=== PATIENT | female | born 1960 | race Caucasian/White ===

== ENCOUNTER → 2024-04-21 17:00 | Outpatient (REF) | payer BC, SELFPAY | LOC: WDC 17:00 | PROVIDERS: ATTENDING PHYSICIAN Obstetrics & Gynecology Gynecology; FAMILY PHYSICIAN Internal Medicine | DX: Z12.31 Encounter for screening mammogram for malignant neoplasm of breast (principal); Z01.419 Encounter for gynecological examination (general) (routine) without abnormal findings | CPT/HCPCS: 77063; 77067 ==

== ENCOUNTER 2025-04-27 15:20 | Emergency (ER) | payer BC, SELFPAY ==
[2025-04-27 17:45] VITALS: BP 161/92
[2025-04-27 17:47] VITALS: BP 161/92
[2025-04-27 17:50] VITALS: BMI 32.4
[2025-04-27] MEDS: TORADOL 15 MG IV (18:19)
[2025-04-27] MEDS: TYLENOL 650 MG PO (18:19)
[2025-04-27 18:23] LABS: ALT (SGPT) 18 U/L (0-35); AST (SGOT) 18 U/L (14-36); Albumin 4.5 g/dl (3.5-5.0); Alkaline Phosphatase 59 U/L (38-126); Blood Urea Nitrogen 8 mg/dl (7-17); Calcium 9.5 mg/dl (8.4-10.2); Carbon Dioxide 25 mmol/L (22-30); Chloride 106 mmol/L (98-107); Estimated Creatinine Clearance 83 ml/min; Glucose 97 mg/dl (70-99); Potassium 3.8 mmol/L (3.5-5.1); Sodium 137 mmol/L (135-145); Total Bilirubin 1.3 mg/dl (0.2-1.3); Total Protein 7.1 g/dl (6.3-8.2); eGFR > 60.00
--- NOTE | 2025-04-27 18:23 | ED.GENMED ---
History of Present Illness
General
Chief Complaint: Abdominal Pain
Source: patient
Time Seen by Provider: 04/27/25 18:14
History of Present Illness
History of Present Illness:
64-year-old female with past medical history of hypertension and previous diverticulitis presenting to the ER for evaluation of left lower quadrant pain that began yesterday, acutely worse today accompanied with some nausea but no vomiting and a
low-grade fever, found to have a fever of 100.7 here. Patient took some Tylenol this morning around 10 AM for her fever and pain but states minimal relief of the pain. She states that this does feel like her diverticulitis from last time but this
feels '10 times worse'. Patient describes the pain to be a constant throbbing sensation, nonradiating and mostly pronounced within the left lower quadrant and suprapubic area. Social history noncontributory. Surgical history is noted for previous
and laparoscopic cholecystectomy.
Past History
Past History
ED Past Medical History: GERD and HTN
ED Past Surgical History: Cholecystectomy and
Social History
Tobacco: Non-smoker
Alcohol: Occasional
Drug: None
Personal:
Living: with family
Employment: Employed
Review of Systems
Review of Systems
All Other Systems: ROS reviewed and negative except as documented in HPI and ROS
Phy Exam
Physical Exam
Physical Exam:
GENERAL: Alert , in no apparent distress, Appears uncomfortable
EYE: clear conjunctiva b/l
HEAD: NCAT
ENT: o/p clr, mmm.
CARDIAC: Regular rate and rhythm .
LUNGS: Clear breath sounds bilaterally, no acute respiratory distress, no wheezes/rales/rhonchi
ABDOMEN: Soft, moderate left lower quadrant tenderness and suprapubic with grimacing on palpation, no r/g
NEUROLOGICAL: Alert and oriented
SKIN: Warm and dry, skin intact.
MUSCULOSKELETAL: No edema, well perfused.
PSYCH: Normal and appropriate interaction.
Scores
Heart Failure Risk
Heart Failure Risk Score: Not Applicable
Heart Score for Chest Pain Patients
STEMI patient?: Not applicable
Withdrawal Assessment of Alcohol
Withdrawal Assessment Completed?: Not applicable
Course
Orders/Labs/Results
Orders:
Orders
04/27/25 18:01
Complete Blood Count/With Diff Urgent
Comprehensive Metabolic Panel Urgent
Lactate Level [Lactic Acid] Urgent
04/27/25 18:03
Acetaminophen [Tylenol] 650 mg PO NOW STA
Ketorolac [Toradol] 15 mg IV NOW STA
04/27/25 18:04
CT Abd/pelvis W Iv Cont Urgent
Comment:
Reason For Exam: abdominal pain, hx diverticulitis
04/27/25 18:20
Ondansetron Injectable [Zofran] 4 mg IV NOW STA
04/27/25 18:23
Blood Culture Q30M
BRISEIDA Source: Blood/Venous
Specimen Description:
04/27/25 19:00
Blood Culture Q30M
BRISEIDA Source: Blood/Venous
Specimen Description:
04/27/25 21:00
Amoxicillin 875 mg/Clav 125 mg [Augmentin 875 mg/125 mg] 1 tablet PO NOW STA
Abnormal Lab Results
04/27/25
18:01
Absolute Neuts (auto) 8.5 H 10^3/uL
(1.4-6.5)
Absolute Monos (auto) 0.7 H 10^3/uL
(0.1-0.6)
Neutrophils % 78.9 H %
(42.2-75.2)
Lymphocytes % 12.7 L %
(20.5-51.1)
04/27/25 18:01
04/27/25 18:01
Vital Signs
Initial and Last Documented VS:
Initial Vital Signs
Temp Pulse Resp BP Pulse Ox
100.7 F H 102 22 161/92 94
04/27/25 17:45 04/27/25 17:45 04/27/25 17:45 04/27/25 17:45 04/27/25 17:45
Last Documented Vital Signs
Temp Pulse Resp BP Pulse Ox
100.7 F H 99 15 161/92 97
04/27/25 17:45 04/27/25 20:00 04/27/25 20:00 04/27/25 17:47 04/27/25 20:00
MDM/Problems Addressed
Differential Diagnosis Includes:
Diverticulitis, urinary tract infection, appendicitis, colitis, renal/ureteral colic
MDM/Problems Addressed:
64-year-old female presented the ER for evaluation of left lower quadrant abdominal pain that started yesterday, found to have a fever of 100.7 here. Tenderness is significant within the left lower quadrant and suprapubic region. She states that
this does feel like her diverticulitis but much worse presently. Will obtain labs including blood cultures. Pain control with Toradol, Zofran and fluids. CT of the abdomen and pelvis ordered. Disposition pending
*Radiology
Radiology exam reviewed: radiology read reviewed
*Pulse Oximetry
Patient hypoxic: no
*Critical Care Note
Total Time (30-74mins, 75-104mins- exclusive of procedures): Not Applicable
Data Reviewed
Review of Other/Old Records Reveals: Records and Radiology Studies
Patient Management
Social determinants of health affecting care: Living situation and Strong social support
Escalation/DeEscalation of care consider admission/obs:
CT shows acute uncomplicated sigmoid diverticulitis. Given the patient did present with a fever I did offer her hospitalization for IV antibiotics however she does note her symptoms seem to be improved following treatment here and she ultimately
would prefer to be discharged home and trial an oral antibiotic. Will prescribe Augmentin. Give first dose here. Patient aware of return precautions to the ER and is otherwise stable for discharge home.
ED Attending Note
-
Portions of this chart may have been created with voice recognition software.� Occasional wrong word or��sound alike� substitutions may have occurred due to the inherent limitations of voice recognition software.
Discharge Plan
Departure
Patient Disposition: Home (Routine Discharge)
Date of Disposition: 04/27/25
Time of Disposition: 20:59
Patient with high blood pressure during this ER visit?: Yes
Discharge Problem:
Diverticulitis of sigmoid colon
Instructions: Diverticulitis (DC)
Prescriptions:
New
amoxicillin-pot clavulanate 875-125 mg tablet
1 tab PO BID Qty: 19 0RF
No Action
lorazepam 0.5 MG tablet
0.5 mg PO PRN PRN (Reason: anxiety)
hydrochlorothiazide 25 MG tablet
12.5 mg PO DAILY
omeprazole 20 MG capsule,delayed release(DR/EC)
20 mg PO DAILY
prednisone 10 MG tablet
10 mg PO DAILY 12 Days 0RF
metronidazole 500 MG tablet
500 mg PO TID Qty: 21 0RF
ciprofloxacin HCl 500 MG tablet
500 mg PO BID Qty: 14 0RF
Referrals:
NONE,* [Family Provider, Internal Medicine]
Interventions
Interventions:
*Risk Screen - Suicide Last Done: 04/27/25 18:36
*General Assessment Last Done: 04/27/25 18:36
*Neglect/Abuse Screening Last Done: 04/27/25 18:36
*ED- Fall Risk Assessment Last Done: 04/27/25 18:36
*ED COVID-19 Vaccine History Last Done: 04/27/25 18:36
[place]-Bxbona-Vpiqgjyulq Assessment Last Done: 04/27/25 18:36
Discharge Date and Time
Print Language: PORTUGUESE
[2025-04-27] MEDS: ZOFRAN 4 MG IV (18:25)
[2025-04-27 18:51] LABS: % Basophils 0.5 % (0-2); % Eosinophils 0.6 % (0-6); % Immature Granulocytes 0.4 % (0-0.5); % Lymphocytes 12.7 % (20.5-51.1); % Monocytes 6.9 % (1.7-9.3); % Neutrophils 78.9 % (42.2-75.2); Absolute Basophils 0.1 10^3/uL (0-0.2); Absolute Eosinophils 0.1 10^3/uL (0-0.7); Absolute Lymphocytes 1.4 10^3/uL (1.2-3.4); Absolute Monocytes 0.7 10^3/uL (0.1-0.6); Absolute Neutrophils 8.5 10^3/uL (1.4-6.5); Hematocrit 39.5 % (37.0-47.0); Hemoglobin 13.9 g/dL (12.0-16.0); Mean Corp Hgb Conc. 35.2 g/dL (33.0-37.0); Mean Corpuscular Hgb 30.8 pg (27.0-31.0); Mean Corpuscular Volume 87.4 fL (81.0-99.0); Mean Platelet Volume 10.3 fL (7.4-10.4); Nucleated Red Blood Cells % 0 %; Platelet Count 229 10^3/uL (130-400); Red Blood Cell Count 4.52 10^6/uL (4.20-5.40); Red Cell Dist. Width 12.2 % (11.5-14.5); White Blood Cell Count 10.8 10^3/uL (4.8-10.8)
--- NOTE | 2025-04-27 19:00 | DOWNTIME ---
There was a [employer] Downtime on 04/27/2025 from 1230 to 04/27/2025 at 1550. Downtime documentation of patient's care, including medication administrations, has been reconciled in the electronic record per guidelines. Refer to the
patient's paper chart under the miscellaneous tab to see printed paper medication records and downtime forms.
[2025-04-27] MEDS: AUGMENTIN 875 MG/125 MG 1 TABLET PO (21:15)
== END 2025-04-27 21:37 | disposition home or self-care (01) ==
LOC: EMR 15:20
PROVIDERS: EMERGENCY PHYSICIAN Student in an Organized Health Care Education/Training Program
DX: K57.32 Diverticulitis of large intestine without perforation or abscess without bleeding (principal); I10 Essential (primary) hypertension
CPT/HCPCS: 99284; 96374; 96375; 74177; 80053; 83605; 85025; 87040; Q9967

== ENCOUNTER → 2025-05-31 14:01 | Outpatient (REF) | payer BC, SELFPAY | LOC: WDC 14:01 | PROVIDERS: ATTENDING PHYSICIAN Obstetrics & Gynecology Gynecology; FAMILY PHYSICIAN Internal Medicine | DX: Z12.31 Encounter for screening mammogram for malignant neoplasm of breast (principal) | CPT/HCPCS: 77063; 77067 ==